=== PATIENT | male | born 1950 | race Caucasian/White ===

== ENCOUNTER 2016-06-19 08:08 | Emergency (ER) | payer MEDICARE ==
[~2016-06-19] VITALS: Ht 177.8 cm; Wt 100.0 kg
[2016-06-19 08:10] VITALS: BP 145/70; PULSE 104; RESP 20; TEMP 97.8; O2SAT 97
[2016-06-19] MEDS ORDERED: AMLO10TA2 PO (08:29)
[2016-06-19] MEDS ORDERED: VITA1000 PO (08:29)
[2016-06-19] MEDS ORDERED: LOSA100T PO (08:29)
[2016-06-19] MEDS ORDERED: ALPH1CAP PO (08:29)
[2016-06-19] MEDS ORDERED: COBA1000 PO (08:29)
[2016-06-19] MEDS ORDERED: UMEC1AER INH (08:29)
[2016-06-19] MEDS ORDERED: ASPI325T PO (08:29)
[2016-06-19] MEDS ORDERED: PRAV20TA2 PO (08:29)
--- NOTE | 2016-06-19 08:36 | PD ---
HPI Chief Complaint: Injury Time Seen by Provider: 08:36 Travel History International Travel<30 days: No Contact w/Intl Traveler<30days: No Traveled to known affect area: No History of Present Illness HPI 65-year-old male presents to emergency Department with complaint of right ankle and right foot pain after falling from a ladder that buckled yesterday. He says he was about 6 feet up, but was saved when he fell over into the wall and into some boxes. He hit his right foot on a clamper. He denies hitting his head or loss of consciousness. Denies neck pain or back pain. Reports numbness and tingling in his toes occasionally, otherwise denies loss of sensation to the affected extremity. Reports decreased range of motion secondary to pain and swelling. Has not been able to ambulate on the affected extremity. Has not taken any medications to alleviate his symptoms. Has been elevating and icing the affected extremity. Allergies to Ceftin, Dilaudid, doxycycline, erythromycin. Denies anticoagulants. Patient has no other medical complaints. No other modifying factors or associated signs and symptoms. PFSH Past Medical History Hypertension: Yes Tetanus Vaccination: < 5 Years Past Surgical History Appendectomy: Yes Other Surgery: Yes (FEMORAL POPLITEAL BYPASS) Social History Alcohol Use: Yes (beer/ daily) Tobacco Use: No Substance Use: No Allergies-Medications (Allergen,Severity, Reaction): Coded Allergies: Ceftin (Verified Allergy, Severe, Hives, 06/19/16) Dilaudid (Verified Allergy, Severe, Itching, 06/19/16) Doxycycline (Verified Allergy, Severe, Diarrhea, 06/19/16) Erythromycin (Verified Allergy, Severe, Hives, 06/19/16) Reported Meds & Prescriptions Reported Meds & Active Scripts Active Lortab (Hydrocodone-Acetaminophen) 5-325 Mg Tab 1-2 Tab PO Q6H PRN Ibuprofen 800 Mg Tab 800 Mg PO Q8H PRN Reported Anoro Ellipta Inh (Umeclidinium/Vilanterol) 62.5-25 Mcg/Act Aero 1 Puff INH DAILY Aspirin 325 Mg Tab 325 Mg PO DAILY Alpha Lipoic Acid 200 Mg Cap 400 Mg PO DIRECTED Vitamin D-1000 (Cholecalciferol) 1,000 Unit Tab 1,000 Units PO DAILY B-12 1000 (Cobalamine Combinations) 1,000-400 Mcg Subl 1 Tab PO DAILY Pravastatin 20 Mg Tab 20 Mg PO DAILY Losartan (Losartan Potassium) 100 Mg Tab 100 Mg PO DAILY Amlodipine (Amlodipine Besylate) 10 Mg Tab 10 Mg PO DAILY Review of Systems Except as stated in HPI: all other systems reviewed are Neg Physical Exam Narrative GENERAL: Well-nourished, well-developed male patient, in no acute distress SKIN: Warm and dry. HEAD: Atraumatic. Normocephalic. EYES: Pupils equal and round. No scleral icterus. No injection or drainage. ENT: Mucosa pink and moist. Airway patent. NECK: Trachea midline. CARDIOVASCULAR: Regular rate. RESPIRATORY: No accessory muscle use. GASTROINTESTINAL: Rounded. MUSCULOSKELETAL: Right ankle with point tenderness and mildly edematous to the lateral aspect; decreased range of motion; without erythema, ecchymosis. Dorsal aspect of the right foot is edematous and with tenderness on palpation to the mid foot zone; without erythema or ecchymosis. Right lower extremity supple and non-tense with 2+ pedal pulse and sensory intact. No obvious deformities. No clubbing. No cyanosis. No edema. NEUROLOGICAL: Awake and alert. Oriented 3. No obvious cranial nerve deficits. Motor grossly within normal limits. Normal speech. PSYCHIATRIC: Appropriate mood and affect; insight and judgment normal. Data Data Last Documented VS Vital Signs Date Time Temp Pulse Resp B/P Pulse Ox O2 Delivery O2 Flow Rate FiO2 06/19/16 08:10 97.8 104 20 145/70 97 Room Air Orders Ankle, Complete ([id number]) (06/19/16 08:36) Foot, Complete ([id number]) (06/19/16 08:36) Ice/Cold Pack (06/19/16 08:36) Ibuprofen (Motrin) (06/19/16 08:45) Ct Foot W/O Contrast (06/19/16 ) Splint Or Brace Apply/Monitor (06/19/16 11:04) MDM Medical Decision Making Medical Screen Exam Complete: Yes Emergency Medical Condition: Yes Medical Record Reviewed: Yes Differential Diagnosis Foot fracture, ankle fracture, ankle sprain, foot sprain, contusion Narrative Course 65-year-old male with right foot and ankle injury. Injury was from a fall from a ladder from approximately 6 feet up and the patient fell sideways and was saved by a wall and some boxes that were behind. Denies hitting his head or loss of consciousness. Denies neck pain or back pain. Ibuprofen, ice pack, right foot and ankle x-ray ordered. 0947: Right foot and ankle x-ray concludes: Last 24 hours Impressions Foot X-Ray 06/19/16835 Signed Impressions: Service Date/Time: Sunday, June 19, 2016 08:58 - CONCLUSION: Fracturing at the base of the fifth metatarsal. There is also possible small linear fracture fragment seen adjacent to the lateral aspect of the lateral cuneiform bone and distal calcaneus. There is chronic change at the second metatarsal from prior fracture. Arturo Kc MD Ankle X-Ray 06/19/16835 Signed Impressions: Service Date/Time: Sunday, June 19, 2016 09:00 - CONCLUSION: Acute fifth metatarsal base fracture. Arturo Kc MD Call to podiatry. 1008: I spoke with Dr. Dominguez, and she recommended CT of the right foot. CT ordered. 1102: Dr. Dominguez at the bedside; she reviewed the CT scan and recommended a posterior splint, crutches, and follow-up in her office in 2 weeks. Splint ordered. Patient has crutches for support. Instructed patient to follow up with Dr. Dominguez in 2 weeks and the patient verbalized understanding and agreement. Instructed patient no weightbearing on the affected extremity. Ibuprofen, Lortab, Colace prescribed for home. Patient verbalizes understanding and agreement with treatment plan. Patient is medically cleared and stable for discharge. Discussed reasons to return to the emergency department. Instructed patient to follow up with primary care provider. Patient agrees with treatment plan. The patients vital signs are stable and the patient is stable for outpatient follow-up and treatment. Patient discharged home, stable and in no acute distress. Diagnosis Primary Impression: Foot fracture, right Qualified Code: S92.901A - Foot fracture, right, closed, initial encounter Referrals: Luan Dominguez DPM Primary Care Physician Patient Instructions: Crutch Instructions (ED), Foot Fracture in Adults (ED), General Instructions Additional Instructions: Ibuprofen or Tylenol as directed and as needed For pain and inflammation Rest, ice, compress, and elevate extremity to decrease pain and inflammation Ankle Brace for support Crutches for support No weight baring on effected extremity Avoid aggravating activity; increase activity as tolerated Follow-up with primary care provider Follow-up with Dr. Dominguez in 2 weeks; call her office and make an appointment ; her information is provided in her discharge instructions Return to the emergency department immediately with worsening symptoms Med/Other Pt SpecificInfo: Prescription(s) given Scripts Docusate Sodium (Colace)100 Mg [id number] Mg PO BID PRN (Constipation) #20 CAP Ref 0 Prov:Ellie Easton 06/19/16 Hydrocodone-Acetaminophen (Lortab)5-325 Mg Tab1-2 Tab PO Q6H PRN (PAIN GREATER THAN 5) #20 TAB Ref 0 Prov:Andrew Miranda MD 06/19/16 Ibuprofen 800 Mg Xgr472 Mg PO Q8H PRN (PAIN SCALE 1 TO 10) #30 TAB Ref 0 Prov:Ellie Easton 06/19/16 Disposition: 01 DISCHARGE HOME Condition: Stable Ellie Easton Jun 19, 2016 08:36
[2016-06-19] MEDS ORDERED: IBUPROFEN 800 MG TAB PO ONE (08:45)
[2016-06-19] MEDS ORDERED: IBUP800T23 PO (08:47)
--- NOTE | 2016-06-19 09:35 | RADRPT ---
EXAM DATE/TIME: 06/19/2016 08:58 [facility] COMPARISON: No previous studies available for comparison. INDICATIONS : Right foot and ankle pain post fall from ladder yesterday. MEDICAL HISTORY : None. SURGICAL HISTORY : None. ENCOUNTER: Initial ACUITY: 2 days PAIN SCORE: 9/10 LOCATION: Right foot and ankle FINDINGS: There appears to be an acute fracture at the base of the fifth metatarsal. There is evidence of prior fracturing, callus formation, and healing at the distal second metatarsal. On the AP view, there are linear bony density seen adjacent to the proximal lateral aspect of the lateral cuneiform bone and t he distal lateral aspect of the calcaneus which may represent small fracture fragments. These are onl y seen on the AP view. CONCLUSION: Fracturing at the base of the fifth metatarsal. There is also possible small linear fracture fragment seen adjacent to the lateral aspect of the lateral cuneiform bone and distal calcaneus. There is chr onic change at the second metatarsal from prior fracture. Arturo Kc MD on June 19, 2016 at 9:26 Board Certified Radiologist. This report was verified electronically.
--- NOTE | 2016-06-19 09:37 | RADRPT ---
EXAM DATE/TIME: 06/19/2016 09:00 [facility] COMPARISON: No previous studies available for comparison. INDICATIONS : Right ankle pain and swelling, post fall from ladder yesterday. MEDICAL HISTORY : None. SURGICAL HISTORY : None. ENCOUNTER: Initial ACUITY: 2 days PAIN SCORE: 9/10 LOCATION: Right ankle FINDINGS: There is an acute fracture at the proximal base of fifth metatarsal. There is a healed second metatar emilee fracture. There is hypertrophic change at the Achilles and plantar aponeurosis attachment site at the posterior calcaneus. There is a bony density seen adjacent to the dorsal talus likely related to hypertrophic change. CONCLUSION: Acute fifth metatarsal base fracture. Arturo Kc MD on June 19, 2016 at 9:34 Board Certified Radiologist. This report was verified electronically.
[2016-06-19] MEDS ORDERED: HYDR-3533 PO (11:06)
[2016-06-19] MEDS ORDERED: COLA100C3 PO (11:13)
--- NOTE | 2016-06-19 12:19 | RADRPT ---
EXAM DATE/TIME: 06/19/2016 10:48 [facility] COMPARISON: FOOT RIGHT COMPLETE ([id number]), June 19, 2016, 8:58. INDICATIONS : Fall from ladder yesterday, right lateral foot pain. RADIATION DOSE: 7.29 CTDIvol (mGy) MEDICAL HISTORY : Renal cancer, hypertension SURGICAL HISTORY : Right foot surgery, right popliteal bypass ENCOUNTER: Initial ACUITY: 1 day PAIN SCALE: 8/10 LOCATION: Right lateral foot TECHNIQUE: Volumetric scanning of the foot was performed. Using automated exposure control and adjustment of th e mA and/or kV according to patient size, radiation dose was kept as low as reasonably achievable to obtain optimal diagnostic quality images. FINDINGS: There is fracturing of the proximal aspect of the 5th metatarsal. The fracture fragments do not appe ar displaced. There are some small bony densities seen adjacent to the dorsal distal lateral calcane us and the proximal dorsal lateral mid cuneiform bone. On the sagittal views, there does appear to b e a defect at the distal dorsal lateral cortex of the cuneiform bone. There does appear to be some c ystic change in this region. The adjacent bone density could potentially represent a small fragment of the dorsal distal cortex in this region. It is uncertain if this is an acute or chronic abnormali ty. The curvilinear fragment measures approximately 1 cm in length. There is a similar appearing fr agment seen adjacent to the dorsal lateral mid cuneiform bone measuring 1 cm. A possible donor site is not clearly identified. There is a mature sesamoid bone seen along the plantar lateral aspect of the cuneiform bone. CONCLUSION: 1. Nondisplaced fracturing of the proximal base of the 5th metatarsal. 2. Curvilinear 1 cm fragment seen adjacent to the distal dorsal lateral cuneiform bone with a possib le donor site seen at the dorsal distal calcaneus adjacent to the cystic change. 3. 1 cm fragment seen adjacent to the dorsal lateral mid cuneiform bone. A definite absence of a cl ear donor site suggests this is more likely chronic. Arturo Kc MD on June 19, 2016 at 11:55 Board Certified Radiologist. This report was verified electronically.
== END 2016-06-19 11:53 | disposition home or self-care (01) ==
LOC: NEPK 08:08
DX: S92.354A Nondisplaced fracture of fifth metatarsal bone, right foot, initial encounter for closed fracture (principal); R20.2 Paresthesia of skin; I10 Essential (primary) hypertension; W11.XXXA Fall on and from ladder, initial encounter
CPT/HCPCS: 29515; 73610; 73630; 73700